=== PATIENT | male | born 1980 | race Two or more races ===

== ENCOUNTER 2017-03-06 14:11 | Observation (INO) | payer MEDICAID, SELFPAY ==
[2017-03-06] VITALS (7 sets, daily range): BP systolic 104–154; BP diastolic 56–86; PULSE 63–93; RESP 16–18; TEMP 36.9–37.2; O2SAT 100; BMI 25.9
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
[2017-03-06 16:06] LABS: Prothrombin Time (Protime)PT. 12.5 SECONDS (11.7-14.9)
[2017-03-06] MEDS: Methocarbamol 750 MG Tablet PO (16:07)
[2017-03-06] MEDS: chlordiazePOXIDE 25 MG Capsule PO ×3 (16:07→23:15)
[2017-03-06] MEDS: Dicyclomine 10 MG Capsule 20 MG PO (16:07)
[2017-03-06 16:17] LABS: Alcohol, Blood (Medical)-Serum < 3.0 mg/dL
[2017-03-06 16:27] LABS: Amylase 39 U/L (25-115); Lipase 82 U/L (73-393)
[2017-03-06 16:28] LABS: Vitamin B12 514 pg/mL (211-911)
[2017-03-06] MEDS: Ibuprofen 600 MG Tablet PO (18:05)
[2017-03-06] MEDS: QUEtiapine 25 MG Tablet PO (18:05)
[2017-03-06 21:10] LABS: Amphetamine Urine VISTA NEGATIVE (<1000 ng/mL); Barbiturate Urine VISTA NEGATIVE (< 200 ng/mL); Benzodiazepine Urine VISTA NEGATIVE (< 200 ng/mL); Cocaine Urine VISTA NEGATIVE (< 300 ng/mL); Ecstacy Urine VISTA NEGATIVE (< 500 ng/mL); Methadone Urine VISTA NEGATIVE (< 300 ng/mL); PCP Urine VISTA NEGATIVE (< 25 ng/mL); THC Urine VISTA NEGATIVE (< 50 ng/mL); Vista UDS pH Range 7
[2017-03-06] MEDS: Pramipexole Di-HCl 0.125 MG Tablet PO (21:17)
[2017-03-06] MEDS: traZODone 50 MG Tablet PO (21:17)
[2017-03-06] MEDS: Buprenorphine HCl 2 MG TAB.SUBL SL (21:20)
[2017-03-07 02:00] VITALS: BP 102/54; PULSE 60; RESP 18; TEMP 36.6
[2017-03-07] MEDS: chlordiazePOXIDE 25 MG Capsule PO ×3 (03:29→10:58)
[2017-03-07 06:00] VITALS: BP 103/53; PULSE 61; RESP 18; TEMP 36.6
[2017-03-07] MEDS: Buprenorphine HCl 2 MG TAB.SUBL SL ×2 (06:11→16:20)
--- NOTE | 2017-03-07 09:32 | PCM.PN.HOSP ---
Patient Problems: Active and Suspected Problems Acute hyperactive opioid withdrawal delirium (Acute) Subjective: Feeling much better today. Still sick overall, however. Vitals/I&O's: Vital Signs Temp Pulse Resp BP Pulse Ox 36.6 C 61 18 103/53 L 100 03/07/17 06:00 03/07/17 06:00 03/07/17 06:00 03/07/17 06:00 03/06/17 20:36 Oxygen Delivery Method Room Air Weight: 84.2 kg Body Mass Index (BMI) 25.9 General: Alert, Cooperative, No apparent distress HEENT: Atraumatic, Normocephalic Neck: No Nodes, Thyroid Normal Size and Texture Lungs: Clear to auscultation, Normal air movement, No rhonchi, No wheeze Cardiovascular: Regular rate, Regular Rhythm, Normal S1, Normal S2, No murmurs Abdomen: Bowel Sounds Present, Soft, Non Tender, Non-Distended, No Hepato-splenomegaly Extremities: No edema, No Calf Tenderness Psych/Mental Status: Normal Affect, Appropriate Laboratory Results 03/06/17 15:27: Amylase 39, Lipase 82, Folate 7.40 03/06/17 15:27: Ethyl Alcohol < 3.0 03/06/17 15:27: PT 12.5, INR 1.0 03/06/17 15:27: Vitamin B12 514 03/06/17 15:27: Whole Bld Vitamin B1 Pending 03/06/17 15:27: Hepatitis A IgM Ab Pending, Hep Bs Antigen Pending, Hep B Core IgM Ab Pending, Hepatitis C Ab (EIA) Pending 03/06/17 20:10: Urine Opiates Screen POSITIVE H, Urine Methadone Screen NEGATIVE, Ur Barbiturates Screen NEGATIVE, Ur Phencyclidine Scrn NEGATIVE, Ur Amphetamines Screen NEGATIVE, U Methamphetamin-MDMA NEGATIVE, U Benzodiazepines Scrn NEGATIVE, Urine Cocaine Screen NEGATIVE, U Cannabinoids Screen NEGATIVE, Ur Drug Screen Comment Current Medications Acetaminophen (Tylenol) 500 mg PO Q4H PRN PRN PRN Reason: Temp > 100.4 F Al Hydroxide/Mg Hydroxide (Mylanta Ii) 30 ml PO Q6H PRN PRN PRN Reason: dyspesia Bisacodyl (Dulcolax) 10 mg RECTAL DAILY PRN PRN Reason: Constipation Buprenorphine HCl (Buprenorphine Hcl) 4 mg SL Q8H [facility] PRN Reason: Taper Stop: 03/09/17 18:59 Last Admin: 03/07/17 06:11 Dose: 4 mg Chlordiazepoxide (Librium) 25 mg PO Q4H [facility] Stop: 03/07/17 11:11 Last Admin: 03/07/17 06:10 Dose: 25 mg Clonidine (Catapres) 0.1 mg PO Q2H PRN PRN PRN Reason: Hot/Cold Sweats or Anxiety Dicyclomine HCl (Bentyl) 20 mg PO Q6H PRN PRN PRN Reason: Abdomnial Discomfort Last Admin: 03/06/17 16:07 Dose: 20 mg Folic Acid (Folic Acid) 1 mg PO DAILY@0800 [facility] Hydroxyzine HCl (Vistaril) 50 mg IM Q6H PRN PRN PRN Reason: Breakthrough Anxiety Hydroxyzine Pamoate (Vistaril) 50 mg PO Q6H PRN PRN PRN Reason: Mild Anxiety (score 1/3) Last Admin: 03/06/17 16:07 Dose: 50 mg Ibuprofen (Motrin) 600 mg PO Q8H PRN PRN PRN Reason: Mild-Moderate Pain (1-5/10) Last Admin: 03/06/17 18:05 Dose: 600 mg Loperamide HCl (Imodium) 2 - 4 mg PO UD PRN PRN Reason: LOOSE STOOLS Methocarbamol (Methocarbamol) 750 mg PO Q6H PRN PRN PRN Reason: Muscle Aches Last Admin: 03/06/17 16:07 Dose: 750 mg Multivitamins/Minerals (Multivitamin With Minerals) 1 tablet PO DAILYCM [facility] Nicotine (Nicoderm Cq (Pbkc)) 21 mg TRANSDERM. DAILY [facility] Nutritional Formula (Lactose Free) (Ensure Enlive) 120 ml PO 4X/DAY [facility] Last Admin: 03/06/17 21:18 Dose: 120 ml Ondansetron HCl (Zofran Odt) 4 mg PO Q6H PRN PRN PRN Reason: NAUSEA Pramipexole Dihydrochloride (Mirapex) 0.125 mg PO Q12H PRN PRN PRN Reason: Restless Legs Last Admin: 03/06/17 21:17 Dose: 0.125 mg Quetiapine Fumarate (Seroquel) 25 mg PO Q6H PRN PRN PRN Reason: Moderate Anxiety (score 2/3) Last Admin: 03/06/17 18:05 Dose: 25 mg Senna (Senokot) 1 tablet PO QHS PRN PRN Reason: Constipation Thiamine HCl (Vitamin B1) 100 mg PO DAILYCM [facility] Trazodone HCl (Desyrel) 50 mg PO QHS [facility] Last Admin: 03/06/17 21:17 Dose: 50 mg Assessment/Plan Active and Suspected Problems Acute hyperactive opioid withdrawal delirium (Acute) 1. Acute opiate withdrawal Subjectively improved today. Continue with medical stabilization protocol with Subutex but also other agents to help him with other somatic complaints. Patient's estimated discharge date will be the after his last dose of Subutex. Code Visit Inpatient E&M: 40922 Subs Hosp L2
--- NOTE | 2017-03-07 09:35 | PN_ITS ---
Patient Problems: Active and Suspected Problems Acute hyperactive opioid withdrawal delirium (Acute) Subjective: Feeling much better today. Still sick overall, however. Vitals/I&O's: Vital Signs Temp Pulse Resp BP Pulse Ox 36.6 C 61 18 103/53 L 100 03/07/17 06:00 03/07/17 06:00 03/07/17 06:00 03/07/17 06:00 03/06/17 20:36 Oxygen Delivery Method Room Air Weight: 84.2 kg Body Mass Index (BMI) 25.9 General: Alert, Cooperative, No apparent distress HEENT: Atraumatic, Normocephalic Neck: No Nodes, Thyroid Normal Size and Texture Lungs: Clear to auscultation, Normal air movement, No rhonchi, No wheeze Cardiovascular: Regular rate, Regular Rhythm, Normal S1, Normal S2, No murmurs Abdomen: Bowel Sounds Present, Soft, Non Tender, Non-Distended, No Hepato- splenomegaly Extremities: No edema, No Calf Tenderness Psych/Mental Status: Normal Affect, Appropriate Laboratory Results 03/06/17 15:27: Amylase 39, Lipase 82, Folate 7.40 03/06/17 15:27: Ethyl Alcohol < 3.0 03/06/17 15:27: PT 12.5, INR 1.0 03/06/17 15:27: Vitamin B12 514 03/06/17 15:27: Whole Bld Vitamin B1 Pending 03/06/17 15:27: Hepatitis A IgM Ab Pending, Hep Bs Antigen Pending, Hep B Core IgM Ab Pending, Hepatitis C Ab (EIA) Pending 03/06/17 20:10: Urine Opiates Screen POSITIVE H, Urine Methadone Screen NEGATIVE , Ur Barbiturates Screen NEGATIVE, Ur Phencyclidine Scrn NEGATIVE, Ur Amphetamines Screen NEGATIVE, U Methamphetamin-MDMA NEGATIVE, U Benzodiazepines Scrn NEGATIVE, Urine Cocaine Screen NEGATIVE, U Cannabinoids Screen NEGATIVE, Ur Drug Screen Comment Current Medications Acetaminophen (Tylenol) 500 mg PO Q4H PRN PRN PRN Reason: Temp > 100.4 F Al Hydroxide/Mg Hydroxide (Mylanta Ii) 30 ml PO Q6H PRN PRN PRN Reason: dyspesia Bisacodyl (Dulcolax) 10 mg RECTAL DAILY PRN PRN Reason: Constipation Buprenorphine HCl (Buprenorphine Hcl) 4 mg SL Q8H [facility] PRN Reason: Taper Stop: 03/09/17 18:59 Last Admin: 03/07/17 06:11 Dose: 4 mg Chlordiazepoxide (Librium) 25 mg PO Q4H [facility] Stop: 03/07/17 11:11 Last Admin: 03/07/17 06:10 Dose: 25 mg Clonidine (Catapres) 0.1 mg PO Q2H PRN PRN PRN Reason: Hot/Cold Sweats or Anxiety Dicyclomine HCl (Bentyl) 20 mg PO Q6H PRN PRN PRN Reason: Abdomnial Discomfort Last Admin: 03/06/17 16:07 Dose: 20 mg Folic Acid (Folic Acid) 1 mg PO DAILY@0800 [facility] Hydroxyzine HCl (Vistaril) 50 mg IM Q6H PRN PRN PRN Reason: Breakthrough Anxiety Hydroxyzine Pamoate (Vistaril) 50 mg PO Q6H PRN PRN PRN Reason: Mild Anxiety (score 1/3) Last Admin: 03/06/17 16:07 Dose: 50 mg Ibuprofen (Motrin) 600 mg PO Q8H PRN PRN PRN Reason: Mild-Moderate Pain (1-5/10) Last Admin: 03/06/17 18:05 Dose: 600 mg Loperamide HCl (Imodium) 2 - 4 mg PO UD PRN PRN Reason: LOOSE STOOLS Methocarbamol (Methocarbamol) 750 mg PO Q6H PRN PRN PRN Reason: Muscle Aches Last Admin: 03/06/17 16:07 Dose: 750 mg Multivitamins/Minerals (Multivitamin With Minerals) 1 tablet PO DAILYCM [facility] Nicotine (Nicoderm Cq (Pbkc)) 21 mg TRANSDERM. DAILY [facility] Nutritional Formula (Lactose Free) (Ensure Enlive) 120 ml PO 4X/DAY [facility] Last Admin: 03/06/17 21:18 Dose: 120 ml Ondansetron HCl (Zofran Odt) 4 mg PO Q6H PRN PRN PRN Reason: NAUSEA Pramipexole Dihydrochloride (Mirapex) 0.125 mg PO Q12H PRN PRN PRN Reason: Restless Legs Last Admin: 03/06/17 21:17 Dose: 0.125 mg Quetiapine Fumarate (Seroquel) 25 mg PO Q6H PRN PRN PRN Reason: Moderate Anxiety (score 2/3) Last Admin: 03/06/17 18:05 Dose: 25 mg Senna (Senokot) 1 tablet PO QHS PRN PRN Reason: Constipation Thiamine HCl (Vitamin B1) 100 mg PO DAILYCM [facility] Trazodone HCl (Desyrel) 50 mg PO QHS [facility] Last Admin: 03/06/17 21:17 Dose: 50 mg Assessment/Plan Active and Suspected Problems Acute hyperactive opioid withdrawal delirium (Acute) 1. Acute opiate withdrawal Subjectively improved today. Continue with medical stabilization protocol with Subutex but also other agents to help him with other somatic complaints. Patient's estimated discharge date will be the after his last dose of Subutex. Code Visit Inpatient E&M: 52627 Subs Hosp L2
[2017-03-07 10:50] VITALS: BP 99/57; PULSE 61; RESP 16; TEMP 36.6
[2017-03-07] MEDS: Methocarbamol 750 MG Tablet PO (10:58)
[2017-03-07] MEDS: QUEtiapine 25 MG Tablet PO ×2 (10:58→19:16)
[2017-03-07] MEDS: Folic Acid 1 MG Tablet PO (10:59)
[2017-03-07] MEDS: cloNIDine HCl 0.1 MG Tablet PO ×2 (10:59→16:09)
[2017-03-07] MEDS: Thiamine Hydrochloride 100 MG Tablet PO (10:59)
[2017-03-07] MEDS: Multivitamins,Ther W-Minerals Tablet 1 TABLET PO (10:59)
[2017-03-07 15:53] VITALS: BP 101/58; PULSE 73; RESP 16; TEMP 36.6
[2017-03-07] MEDS: Ibuprofen 600 MG Tablet PO (16:11)
[2017-03-07] MEDS: Pramipexole Di-HCl 0.125 MG Tablet PO (16:11)
[2017-03-07 20:00] VITALS: BP 94/54; PULSE 65; RESP 18; TEMP 36.6
[2017-03-07 20:24] VITALS: O2SAT 96
[2017-03-07] MEDS: traZODone 50 MG Tablet PO (22:21)
[2017-03-08] MEDS: Buprenorphine HCl 2 MG TAB.SUBL SL ×3 (00:46→16:08)
[2017-03-08 00:49] VITALS: BP 92/58; PULSE 73; RESP 18; TEMP 36.4
[2017-03-08 00:51] VITALS: O2SAT 98
[2017-03-08 05:00] VITALS: BP 91/55; PULSE 51; RESP 18; TEMP 36.6; O2SAT 97
[2017-03-08 06:08] LABS: HEPATITIS B SURFACE AG Negative (Negative); Hepatitis A IgM Antibody Negative (Negative); Hepatitis B Core AB IgM Positive (Negative)
[2017-03-08 08:26] LABS: Hep C Antibodies >11.0 s/co ratio (0.0-0.9)
[2017-03-08 09:26] VITALS: BP 90/51; PULSE 55; RESP 18; TEMP 36.6; O2SAT 97
[2017-03-08] MEDS: Thiamine Hydrochloride 100 MG Tablet PO (09:29)
[2017-03-08] MEDS: Multivitamins,Ther W-Minerals Tablet 1 TABLET PO (09:29)
[2017-03-08] MEDS: Folic Acid 1 MG Tablet PO (09:29)
[2017-03-08] MEDS: Pramipexole Di-HCl 0.125 MG Tablet PO (09:30)
--- NOTE | 2017-03-08 09:48 | PCM.PN.HOSP ---
Patient Problems: Active and Suspected Problems Acute hyperactive opioid withdrawal delirium (Acute) Subjective: Feeling better overall. Still w some malaise. Vitals/I&O's: Vital Signs Temp Pulse Resp BP Pulse Ox 36.6 C 55 L 18 90/51 L 97 03/08/17 09:26 03/08/17 09:26 03/08/17 09:26 03/08/17 09:26 03/08/17 09:26 Oxygen Delivery Method Room Air Weight: 84.2 kg Body Mass Index (BMI) 25.9 Intake and Output for Last 24 Hours 03/06/17 03/07/17 03/08/17 23:59 23:59 23:59 Intake Total 980 / 980 Balance 980 / 980 General: Alert, Cooperative, No apparent distress HEENT: Atraumatic, Normocephalic Lungs: Clear to auscultation, Normal air movement, No rhonchi, No wheeze Cardiovascular: Regular rate, Regular Rhythm, Normal S1, Normal S2 Abdomen: Bowel Sounds Present, Soft, Non Tender, Non-Distended Extremities: No edema, No Calf Tenderness Psych/Mental Status: Normal Affect, Appropriate Laboratory Results 03/06/17 15:27: Hepatitis A IgM Ab Negative, Hep Bs Antigen Negative, Hep B Core IgM Ab Positive H, Hepatitis C Ab (EIA) >11.0 H Current Medications Acetaminophen (Tylenol) 500 mg PO Q4H PRN PRN PRN Reason: Temp > 100.4 F Al Hydroxide/Mg Hydroxide (Mylanta Ii) 30 ml PO Q6H PRN PRN PRN Reason: dyspesia Bisacodyl (Dulcolax) 10 mg RECTAL DAILY PRN PRN Reason: Constipation Buprenorphine HCl (Buprenorphine Hcl) 2 mg SL Q8H [facility] PRN Reason: Taper Stop: 03/10/17 04:14 Last Admin: 03/08/17 09:33 Dose: 2 mg Clonidine (Catapres) 0.1 mg PO Q2H PRN PRN PRN Reason: Hot/Cold Sweats or Anxiety Last Admin: 03/07/17 16:09 Dose: 0.1 mg Dicyclomine HCl (Bentyl) 20 mg PO Q6H PRN PRN PRN Reason: Abdomnial Discomfort Last Admin: 03/06/17 16:07 Dose: 20 mg Folic Acid (Folic Acid) 1 mg PO DAILY@0800 [facility] Last Admin: 03/08/17 09:29 Dose: 1 mg Hydroxyzine HCl (Vistaril) 50 mg IM Q6H PRN PRN PRN Reason: Breakthrough Anxiety Hydroxyzine Pamoate (Vistaril) 50 mg PO Q6H PRN PRN PRN Reason: Mild Anxiety (score 1/3) Last Admin: 03/06/17 16:07 Dose: 50 mg Ibuprofen (Motrin) 600 mg PO Q8H PRN PRN PRN Reason: Mild-Moderate Pain (1-5/10) Last Admin: 03/07/17 16:11 Dose: 600 mg Loperamide HCl (Imodium) 2 - 4 mg PO UD PRN PRN Reason: LOOSE STOOLS Methocarbamol (Methocarbamol) 750 mg PO Q6H PRN PRN PRN Reason: Muscle Aches Last Admin: 03/07/17 10:58 Dose: 750 mg [facility]ivitamins/Minerals ([facility]ivitamin With Minerals) [facility] Last Admin: 03/08/17 09:29 Dose: 1 tablet Nicotine (Nicoderm Cq (Pbkc)) 21 mg TRANSDERM. DAILY [facility] Last Admin: 03/08/17 09:29 Dose: 21 mg Nutritional Formula (Lactose Free) (Ensure Enlive) 120 ml PO 4X/DAY [facility] Last Admin: 03/08/17 09:33 Dose: 120 ml Ondansetron HCl (Zofran Odt) 4 mg PO Q6H PRN PRN PRN Reason: NAUSEA Pramipexole Dihydrochloride (Mirapex) 0.125 mg PO Q12H PRN PRN PRN Reason: Restless Legs Last Admin: 03/08/17 09:30 Dose: 0.125 mg Quetiapine Fumarate (Seroquel) 25 mg PO Q6H PRN PRN PRN Reason: Moderate Anxiety (score 2/3) Last Admin: 03/07/17 19:16 Dose: 25 mg Senna (Senokot) 1 tablet PO QHS PRN PRN Reason: Constipation Thiamine HCl (Vitamin B1) [facility] Last Admin: 03/08/17 09:29 Dose: 100 mg Trazodone HCl (Desyrel) 50 mg PO QHS [facility] Last Admin: 03/07/17 22:21 Dose: 50 mg Assessment/Plan Active and Suspected Problems Acute hyperactive opioid withdrawal delirium (Acute) 1. Acute opiate withdrawal Improved today. Continue with medical stabilization protocol with Subutex but also other agents to help him with other somatic complaints. Patient's estimated discharge date will be the after his last dose of Subutex. Patient had his outpatient addiction treatment set up before being admitted. Code Visit Inpatient E&M: 97723 Subs Hosp L2
[2017-03-08] MEDS: cloNIDine HCl 0.1 MG Tablet PO ×2 (14:42→18:23)
[2017-03-08 16:06] VITALS: BP 115/82; PULSE 79; RESP 18; TEMP 36.4; O2SAT 100
[2017-03-08] MEDS: QUEtiapine 25 MG Tablet PO (18:23)
[2017-03-08 20:00] VITALS: BP 99/61; PULSE 72; RESP 18; TEMP 36.6; O2SAT 98
[2017-03-08] MEDS: traZODone 50 MG Tablet PO (22:25)
[2017-03-09] MEDS: Buprenorphine HCl 2 MG TAB.SUBL SL (04:51)
[2017-03-09 04:52] VITALS: BP 93/56; PULSE 53; RESP 18; TEMP 36.4
--- NOTE | 2017-03-09 10:14 | PCM.DC ---
- Discharge Diagnoses Current Active Problems: Current Active and Chronic Problems Acute hyperactive opioid withdrawal delirium (Acute) Chronic opioid use and dependence (Chronic) Nicotine dependence (Chronic) Chronic back pain (Chronic) You will use the following diet at home:: No restrictions Your food should be the consistency of: Regular Discharge Activity: Return to Normal Activity Call your doctor if you observe: Fever of 101 or Higher, Shortness of breath, Dizziness Allergies/Adverse Reactions: Allergies Penicillins Adverse Reaction (Verified 03/06/17 14:24) Hives Medications to take at Discharge NK [NK] 03/06/17 Primary Care Physician: Care Physician,No Primary [Primary Care Provider] - Within 2 Weeks
--- NOTE | 2017-03-09 10:20 | DS.PCM_ITS ---
Discharge Date and Diagnosis - Problem List Patient Problems: Active and Suspected Problems Acute hyperactive opioid withdrawal delirium (Acute) Date of Admission: 03/06/17 Date of Discharge: 03/09/17 - Primary Discharge Diagnosis Active and Suspected Problems Acute hyperactive opioid withdrawal delirium (Acute) - Secondary Discharge Diagnosis Chronic Problems Chronic opioid use and dependence (Chronic) Nicotine dependence (Chronic) Chronic back pain (Chronic) Hospital Course and Treatment Procedures: None Summary of Care Provided: The patient is a 36 year old M presents with acute opiate withdrawal. Patient was enrolled on the medical stabilization protocol through [facility]. Patient was on Subutex. Patient did well and has completed his 3 days of the Subutex taper. Patient had lab work that showed positive opiates on his drug screen but did show positive hepatitis B core antibody as well as hepatitis C antibody. Shows the patient has had exposure to both hepatitis B and C. Patient need to follow-up with a primary care doctor in regards to further evaluation of this. Patient was made aware of this. Patient has already had something set up prior to this admission for residential treatment for his opiate addiction and will be going there after discharge. [] Vital Signs Height 1.8 m Weight: 84.2 kg Weight in Pounds 185.6 lbs Pulse Ox 98 Temperature 36.4 C Pulse Rate 53 Respiratory Rate 18 Blood Pressure 93/56 Blood Pressure Position Semi-Fowlers Agent is no acute distress and afebrile. Head is atraumatic and normocephalic. Discharge Diet: No Restrictions Discharge Activity: Return to Normal Activity Call your doctor if you observe: Fever of 101 or Higher, Shortness of breath, Dizziness Home Medications: Medications to take at Discharge NK [NK] 03/06/17 Primary Care Physician: Care Physician,No Primary [Primary Care Provider] - Within 2 Weeks Disposition: Home Minutes spent on discharge:: 25 Patient Condition:: Good Meaningful Use Info Meaningful Use Diagnoses (Choose all that apply): None applicable Code Visit Inpatient E&M: 99749 Disch Hosp
[2017-03-09] MEDS: Multivitamins,Ther W-Minerals Tablet 1 TABLET PO (10:57)
[2017-03-09] MEDS: Folic Acid 1 MG Tablet PO (10:57)
[2017-03-09] MEDS: Thiamine Hydrochloride 100 MG Tablet PO (10:57)
[2017-03-09 11:00] VITALS: BP 100/57; PULSE 67; RESP 18; TEMP 36.5
[2017-03-12 10:26] LABS: Vitamin B1, Thiamine 53.5 nmol/L (66.5-200.0)
== END 2017-03-09 11:27 | disposition home or self-care (01) | DRG 435 ==
PROVIDERS: Admitting Provider Internal Medicine
DX: F11.23 Opioid dependence with withdrawal (principal); G89.29 Other chronic pain; M54.9 Dorsalgia, unspecified; Z20.5 Contact with and (suspected) exposure to viral hepatitis; F17.200 Nicotine dependence, unspecified, uncomplicated
CPT/HCPCS: 36415; 80074; 80307; 80320; 82150; 82607; 82746; 83690; 84425; 85610; 97802; 99218; 99406; G0378; G0379; G0480